=== PATIENT | female | born 1975 | race Caucasian/White ===

== ENCOUNTER → 2020-03-26 | Outpatient (CLI) | payer BC | END | disposition home or self-care (01) | LOC: LABWHC1 08:35 | PROVIDERS: ATTEND Otolaryngology | DX: J30.89 Other allergic rhinitis (principal) | CPT/HCPCS: 36415; 86001 ==

== ENCOUNTER → 2020-07-10 | Outpatient (CLI) | payer BC ==
--- NOTE | 2020-07-10 11:39 | FL ---
Barium swallow HISTORY: Dysphagia 62 intraoperative images, 2 minutes 22 seconds fluoroscopy time Patient was given high density barium to drink. Patient shows some prominence of the distal esophagus possibly due to postop change, surgical clips a re present. No definite hiatal hernia. No evident leak. There is no obstruction to flow. Some tertiar y esophageal contractions are present. Swallowing mechanism is normal in the cervical esophagus. Is n o evident mass. Mild degenerative disc changes are noted incidentally in the cervical spine. IMPRESSION: Probable post procedural changes to the distal esophagus at the gastroesophageal junction .
== END | disposition home or self-care (01) ==
LOC: RADUSWWP 09:38
PROVIDERS: ATTEND Otolaryngology
DX: R13.10 Dysphagia, unspecified (principal)
CPT/HCPCS: 74220

== ENCOUNTER 2020-10-30 11:48 | Day surgery (SDC) | payer BC ==
[~2020-10-30 11:48] MED LIST: ALBUTEROL NEB (CONC) 2.5 MG/0.5 ML INHALATION ONE; ATROPINE SULFATE 0.4 MG/ML 1 ML VIAL IM ONE; LACTATED RINGERS 1,000 ML IV SCH; LIDOCAINE 2% (PF) 20 MG/ML 5 ML VIAL INHALATION ONE; LIDOCAINE VISCOUS 300 MG/15 ML CUP MUCOUS MEM ONE
[2020-10-30 12:12] VITALS: TEMP 98.5
[2020-10-30] MEDS ORDERED: MIDAZOLAM 2 MG/2 ML VIAL ONE (13:42)
[2020-10-30] MEDS ORDERED: LIDOCAINE 1% INJ 10MG/ML (20 ML MDV) ONE (13:42)
[2020-10-30] MEDS ORDERED: fentaNYL (PF) 50 MCG/ML 2 ML AMP ONE (13:42)
[2020-10-30] MEDS ORDERED: PROPOFOL 10 MG/ML 20 ML VIAL IV ONE (13:42)
[2020-10-30] MEDS ORDERED: LIDOCAINE 2% INJ 20 MG/ML INTRATRACH ONE ×2 (13:47→13:52)
[2020-10-30 14:11] VITALS: RESP 16
[2020-10-30 14:31] VITALS: BP 120/80; PULSE 79
[2020-10-30 18:24] LABS: Appearance,BF Hazy; Nucleated Cells, Body Fluid 45 /uL; RBC, Body Fluid 790 /uL
--- NOTE | 2020-10-30 18:31 | PCN ---
PROCEDURE NOTE PULMONARY/CRITICAL CARE PROCEDURE: PROCEDURE PERFORMED: Bronchoscopy airway examination, therapeutic lavage, BAL. PREOP DIAGNOSIS: Cough. POSTOP DIAGNOSIS: Cough. OPERATORS: Dr. Roque and Dr. Yancey. There was informed consent and universal timeout. The patient's procedure took place in room #1 Endoscopy. ANESTHESIA: Provided general anesthesia. DESCRIPTION OF PROCEDURE: After the patient was adequately sedated and being fully monitored, the bronchoscope was inserted through the right nostril. It passed through the right nasopharynx into the oropharynx. The hypopharynx was identified and topicalized. The glottic structures including anterior commissure, true cords, false cords, arytenoids, piriform sinuses, right and left valleculae and epiglottis all appeared normal. After topicalization, the bronchoscope was pushed through the glottic opening into the trachea. The trachea appeared to be quite inflamed. The mucosa was erythematous and hyperemic. There was some mucosal friability. There was no mass or lesion. Tracheal gigi was sharp. The right and left mainstem were topicalized. The right upper lobe and its 3 segments, right middle lobe and its 2 segments, the right lower lobe and its 5 segments, the left upper lobe proper and its 2 segments, the lingula and its 2 segments and the left lower lobe and its 4 segments all had similar findings of diffuse airway erythema and hyperemia. The airways were quite inflamed. There was some mucosal friability. There was no dominant mass or tumor. Next the bronchoscope was wedged into the right middle lobe. We did a formal BAL. Thirty mL of fluid was recovered. The patient tolerated the procedure well. The fluid will be sent for analysis. There was no immediate complication. The patient will be recovered. MMODL / IJN: [id number] /
[2020-10-30 18:53] LABS: Mononuclear WBC,Body Fluid 98 %; Polynuclear WBC,Body Fluid 2 %; Total Cells Counted,Body Fluid 100
== END 2020-10-30 14:41 | disposition home or self-care (01) ==
LOC: ORWHC2ENDO 11:48
PROVIDERS: ATTEND Internal Medicine Critical Care Medicine
DX: R05 Cough (principal); I10 Essential (primary) hypertension; Z79.899 Other long term (current) drug therapy
CPT/HCPCS: 31624; 88108; 88305; 89050; 87252; 87070; 87205; 87116; 87102; 87206; J2001 ×2; J2250; J0461; J3010; J2704